=== PATIENT | female | born 1975 | race African-American/Black ===

== ENCOUNTER 2016-11-13 21:27 | Emergency (ER) | payer OTHER ==
[2016-11-13 22:07] VITALS: TEMP 98.6
[2016-11-13] MEDS ORDERED: DIAZEPAM 5 MG TAB PO ONE (22:53)
[2016-11-13] MEDS ORDERED: KETOROLAC 15 MG/1 ML SDV IM ONE (22:53)
[2016-11-13] MEDS ORDERED: LIDOCAINE 5% 1 EA PATCH TD ONE (22:53)
--- NOTE | 2016-11-13 23:02 | EDPHY ---
H & P Stated Complaint: c/o lower back pain radiating into LLE, also c/o vag itching x 4 days Time Seen by Provider: 11/13/16 22:37 HPI/ROS: HPI The patient presents with lower back pain which she has had long-term though has become worse over the last several days to the point where she could not take it any more. She has a history of L1-L2 fusion in 2009 and [facility] up until about 1 month ago when she moved from [place] to [place]. Her pain is throughout her lower back it is achy in nature, worse with movement, radiates down her buttocks to inner thigh and knee. This makes it difficult for her to walk. She describes a pressure like and heavy sensation in her leg though denies any numbness or tingling. She does not have any weakness of the leg. She has not had any fevers. She denies any bowel or bladder dysfunction. She also complains of vaginal discharge and itching for the last several days. REVIEW OF SYSTEMS Constitutional: No fever, no chills. Eyes: No discharge. ENT: No sore throat. Cardiovascular: No chest pain, no palpitations. Respiratory: No cough, no shortness of breath. Gastrointestinal: No abdominal pain, no vomiting. Genitourinary: No hematuria. Musculoskeletal: Positive for back pain. Skin: No rashes. Neurological: No headache. PMHx: History of L1-L2 spinal fusion, asthma Soc Hx: Recently moved here from [place] PHYSICAL General Appearance: Alert, no distress Eyes: Pupils equal and round no pallor or injection ENT, Mouth: Mucous membranes moist Respiratory: There are no retractions, lungs are clear to auscultation Cardiovascular: Regular rate and rhythm Gastrointestinal: Abdomen is soft and non-tender, no masses, bowel sounds normal Back: She has tenderness to the midline throughout her entire lumbar spine with paraspinal tenderness bilaterally Neurological: A&O, 5/5 strength in lower extremities which is symmetric though requires effort, sensation is intact to light touch, negative straight leg raise Skin: Warm and dry, no rashes Musculoskeletal: Neck is supple non tender Extremities: symmetrical, full range of motion Psychiatric: Patient is oriented X 3, there is no agitation Source: Patient Exam Limitations: No limitations - Medical/Surgical History Hx Asthma: Yes Hx Chronic Respiratory Disease: No Hx Diabetes: No Hx Cardiac Disease: No Hx Renal Disease: No Hx Cirrhosis: No Hx Alcoholism: No Hx HIV/AIDS: No Hx Splenectomy or Spleen Trauma: No Other PMH: sciatic back pain, anxiety, asthma, L knee surg x 4, tubal ligation, cholecystectomy, back surg - Social History Smoking Status: Current every day smoker Constitutional: Initial Vital Signs Temperature (C) 37 C 11/13/16 22:03 Heart Rate 83 11/13/16 22:03 Respiratory Rate 16 11/13/16 22:03 Blood Pressure 107/76 11/13/16 22:03 O2 Sat (%) 98 11/13/16 22:03 O2 Delivery Mode Room Air Allergies/Adverse Reactions: Latex, Natural Rubber Allergy (Verified 11/13/16 22:07) shellfish derived Allergy (Verified 11/13/16 22:07) Home Medications: Medication Instructions Recorded Albuterol 5 mg/ml INH 11/13/16 Nitrofurantoin Monohyd/M-Cryst 100 mg PO BID #10 capsule 11/14/16 [Macrobid 100 mg Capsule] metroNIDAZOLE [Flagyl 500 mg (*)] 500 mg PO BID #14 tab 11/14/16 Medical Decision Making - Diagnostics Imaging Results: Lumbar spine films show no obvious fracture, interpreted by me, radiology interpretation is pending Differential Diagnosis: This is a 40-year-old female, recently moved to the area with history of lower back pain and L1-L2 spinal fusion, now with lower back pain which radiates down the left leg. She denies any numbness, weakness, bowel or bladder changes with this. Differential diagnosis includes musculoskeletal spasm, less likely cauda equina , less likely muscle spasm. X-ray was obtained and was unremarkable. The patient was given lidocaine patch , Toradol, Valium with improvement in her symptoms. She also does report vaginal itching and discharge. Pelvic exam reveals small amount of discharge in the vaginal vault. I have sent testing though will treat her for bacterial vaginosis with metronidazole. She also has evidence of UTI and I will treat her for this with Macrobid. I have referred her to primary care for additional follow-up as she is new to the area. - Data Points Laboratory Results: 11/13/16 11/13/16 11/13/16 23:45 23:45 23:30 Urine Color YELLOW Urine Appearance HAZY Urine pH 5.0 (5.0-7.5) Ur Specific [place] 1.016 (1.002-1.030) Urine Protein NEGATIVE (NEGATIVE) Urine Ketones NEGATIVE (NEGATIVE) Urine Blood 2+ H (NEGATIVE) Urine Nitrate POSITIVE H (NEGATIVE) Urine Bilirubin NEGATIVE (NEGATIVE) Urine Urobilinogen NEGATIVE EU EU (0.2-1.0) Ur Leukocyte Esterase TRACE H (NEGATIVE) Urine RBC 1-3 /hpf /hpf (0-3) Urine WBC 10-15 /hpf H /hpf (0-3) Ur Epithelial Cells TRACE /lpf /lpf (NONE-1+) Urine Bacteria 4+ /hpf H /hpf (NONE SEEN) Urine Mucus TRACE /lpf /lpf (NONE-1+) Urine Glucose NEGATIVE (NEGATIVE) Domenica species DNA Pending C.trachomatis RNA (TMA) Pending Gardnerella DNA Probe Pending N.gonorrhoeae RNA (TMA) Pending Trichomonas DNA Probe Pending Medications Given: Discontinued Medications Diazepam (Valium) 5 mg PO EDNOW ONE Stop: 11/13/16 22:54 Last Admin: 11/13/16 23:12 Dose: 5 mg Ketorolac Tromethamine (Toradol) 15 mg IM EDNOW ONE Stop: 11/13/16 22:54 Last Admin: 11/13/16 23:15 Dose: 15 mg Lidocaine (Lidoderm 5%) 1 ea TD EDNOW ONE Stop: 11/13/16 22:54 Last Admin: 11/13/16 23:14 Dose: 1 ea Miscellaneous Information (Patch Removal) 1 ea TD [id number] NEETA Stop: 05/13/17 20:59 Last Admin: 11/13/16 23:26 Dose: 1 ea Departure - Departure Disposition: Home, Routine, Self-Care Clinical Impression: Vaginosis Lower back pain Qualifiers: Chronicity: acute Back pain laterality: midline Sciatica presence: with sciatica Sciatica laterality: sciatica laterality unspecified Qualified Code(s) : M54.40 - Lumbago with sciatica, unspecified side UTI (urinary tract infection) Qualifiers: Urinary tract infection type: acute cystitis Hematuria presence: without hematuria Qualified Code(s): N30.00 - Acute cystitis without hematuria Condition: Good Instructions: Urinary Tract Infection in Women (ED), Low Back Strain (ED), Vaginitis (ED) Referrals: [facility] [Other] - As per Instructions [facility],. [Clinic] - As per Instructions Prescriptions: metroNIDAZOLE [Flagyl 500 mg (*)] 500 mg PO BID #14 tab Nitrofurantoin Monohyd/M-Cryst [Macrobid 100 mg Capsule] 100 mg PO BID #10 capsule
[2016-11-13 23:58] LABS: COLOR YELLOW; LEUKOCYTE ESTERASE,URINE TRACE (NEGATIVE); NITRITE,URINE POSITIVE (NEGATIVE)
[2016-11-14 00:01] LABS: BACTERIA 4+ /hpf (NONE SEEN); MUCUS TRACE /lpf (NONE-1+)
[2016-11-14 02:12] VITALS: BP 109/73; PULSE 69; RESP 14; O2SAT 100
[2016-11-14] MEDS ORDERED: PATCH REMOVAL 1 EA PATCH TD SCH (21:00)
[2016-11-16 13:05] LABS: CHLAMYDIA AMPLIFICATION GENPRB NEGATIVE (NEGATIVE)
== END 2016-11-14 02:18 | disposition home or self-care (01) ==
DX: M54.40 Lumbago with sciatica, unspecified side (principal); N30.00 Acute cystitis without hematuria; N76.0 Acute vaginitis; B96.89 Other specified bacterial agents as the cause of diseases classified elsewhere; J45.909 Unspecified asthma, uncomplicated; F17.200 Nicotine dependence, unspecified, uncomplicated; Z91.040 Latex allergy status
CPT/HCPCS: 72100; 96372; 99284; J1885